=== PATIENT | female | born 1935 | race Caucasian/White ===

== ENCOUNTER 2018-03-16 06:40 | Day surgery (SDC) | payer MEDICARE, BC ==
[2018-03-16] MEDS ORDERED: NEOMYCIN/POLY./DEXAM OPTH OINT OPTH ONE (06:41)
[2018-03-16] MEDS ORDERED: EPINEPHRINE 1 MG/ML AMPUL SQ ONE (06:41)
[2018-03-16] MEDS ORDERED: TETRACAINE HCL 0.5% 15 ML OPTH BTL OPTH ONE (06:41)
[2018-03-16] MEDS ORDERED: LIDOCAINE 2% MDV (20MG/ML) 20ML VIAL IV ONE ×2 (06:41)
[2018-03-16] MEDS ORDERED: PROPOFOL 10 MG/ML VIAL IV ONE (06:41)
[2018-03-16 07:04] LABS: INR 2.3
[2018-03-16] MEDS ORDERED: CIPROFLOXACIN HCL 0.0015 GM, PHENYLEPHRINE HCL 0.05 GM, KETOROLAC TROMETHAMINE 0.000625 GM MC ONE ×5 (11:15)
--- NOTE | 2018-03-18 10:52 | Operative Note ---
DATE OF PROCEDURE: 03/16/18. PREOPERATIVE DIAGNOSIS: Nuclear sclerotic and cortical cataract, left eye. POSTOPERATIVE DIAGNOSIS: Nuclear sclerotic and cortical cataract, left eye. OPERATION: Phacoemulsification of cataractous lens with implantation of intraocular lens. LENS IMPLANT USED: Cazares Model PCB00 + 23.0 diopters. COMPLICATIONS: None. PROCEDURE IN DETAIL: Following a retrobulbar and facial block, the patient was prepped and draped in the usual fashion for eye surgery. A lid speculum was placed in the left eye after which a 2.4 mm tunnel wound was placed at the temporal limbus and dissected into clear cornea. A paracentesis was placed at 2 o'clock hours to the left and right of the initial incision and the chamber deepened with Viscoelastic. The keratome was then used to enter the anterior chamber after which the continuous circular capsulorrhexis was accomplished without difficulty using a bent needle and a Utrata forceps. Hydrodissection and hydrodelineation of the lens was performed after which the nucleus of the lens was removed using the Phaco handpiece in the coqgcr-nsn-nzuhcay technique. The residual cortical material was irrigated and aspirated from the eye after which the bag and chamber were re-examined. The bag was re-inflated with Viscoelastic and the intraocular lens injected into the capsular bag where it centered well. The Viscoelastic was then copiously irrigated and aspirated from the eye after which the temporal tunnel wound and paracentesis were hydrated and the wounds were examined. They were noted to be watertight. The lid speculum was removed from the eye and the eye patched and shielded. The patient was transferred to the recovery room in satisfactory condition and given an appointment to be reexamined in the clinic later today or as directed by Dr. Miramontes. JOB NUMBER: [id number] [facility]
== END 2018-03-16 09:15 | disposition home or self-care (01) ==
LOC: SUR 06:40
PROVIDERS: ATTEND Ophthalmology
DX: H25.12 Age-related nuclear cataract, left eye (principal)
CPT/HCPCS: 85610; J0171

== ENCOUNTER 2018-03-30 08:09 | Day surgery (SDC) | payer MEDICARE, BC ==
[2018-03-30] MEDS ORDERED: NEOMYCIN/POLY./DEXAM OPTH OINT OPTH ONE (08:10)
[2018-03-30] MEDS ORDERED: LIDOCAINE 2% MDV (20MG/ML) 20ML VIAL IV ONE ×2 (08:10)
[2018-03-30] MEDS ORDERED: PROPOFOL 10 MG/ML VIAL IV ONE (08:10)
[2018-03-30] MEDS ORDERED: EPINEPHRINE 1 MG/ML AMPUL SQ ONE (08:10)
[2018-03-30] MEDS ORDERED: TETRACAINE HCL 0.5% 15 ML OPTH BTL OPTH ONE (08:10)
[2018-03-30 09:02] LABS: PROTHROMBIN TIME (PATIENT) 19.6 SECONDS (9.5-12.1)
[2018-03-30] MEDS ORDERED: CIPROFLOXACIN HCL 0.0015 GM, PHENYLEPHRINE HCL 0.05 GM, KETOROLAC TROMETHAMINE 0.000625 GM MC ONE ×5 (16:00)
--- NOTE | 2018-03-31 17:55 | Operative Note ---
DATE OF PROCEDURE: 03/30/18. PREOPERATIVE DIAGNOSIS: Nuclear sclerotic cataract, right eye. POSTOPERATIVE DIAGNOSIS: Nuclear sclerotic cataract, right eye. OPERATION: Phacoemulsification of cataractous lens with implantation of intraocular lens. LENS IMPLANT USED: Cazares Model PCB00 + 23.5 diopters. COMPLICATIONS: None. PROCEDURE IN DETAIL: Following a retrobulbar and facial block, the patient was prepped and draped in the usual fashion for eye surgery. A lid speculum was placed in the right eye after which a 2.4 mm tunnel wound was placed at the temporal limbus and dissected into clear cornea. A paracentesis was placed at 2 o'clock hours to the left and right of the initial incision and the chamber deepened with Viscoelastic. The keratome was then used to enter the anterior chamber after which the continuous circular capsulorrhexis was accomplished without difficulty using a bent needle and a Utrata forceps. Hydrodissection and hydrodelineation of the lens was performed after which the nucleus of the lens was removed using the Phaco handpiece in the [id number]-ebh-[id number] technique. The residual cortical material was irrigated and aspirated from the eye after which the bag and chamber were re-examined. The bag was re-inflated with Viscoelastic and the intraocular lens injected into the capsular bag where it centered well. The Viscoelastic was then copiously irrigated and aspirated from the eye after which the temporal tunnel wound and paracentesis were hydrated and the wounds were examined. They were noted to be watertight. The lid speculum was removed from the eye and the eye patched and shielded. The patient was transferred to the recovery room in satisfactory condition and given an appointment to be reexamined in the clinic later today or as directed by Dr. Miramontes. J[facility]BER: [id number] [facility]
== END 2018-03-30 10:25 | disposition home or self-care (01) ==
LOC: SUR 08:09
PROVIDERS: ATTEND Ophthalmology
DX: H25.11 Age-related nuclear cataract, right eye (principal); I10 Essential (primary) hypertension; E78.00 Pure hypercholesterolemia, unspecified; Z79.01 Long term (current) use of anticoagulants; Z86.711 Personal history of pulmonary embolism; Z86.718 Personal history of other venous thrombosis and embolism; K21.9 Gastro-esophageal reflux disease without esophagitis; G25.0 Essential tremor
CPT/HCPCS: 85610; J0171

== ENCOUNTER → 2018-09-11 | Day surgery (SDC) | payer MEDICARE, BC ==
[~2018-09-11] MED LIST: LIDOCAINE 2% MDV (20MG/ML) 20ML VIAL IV ONE; PROPOFOL 10 MG/ML VIAL IV ONE
[2018-09-11 12:55] LABS: PROTHROMBIN TIME (PATIENT) 10.4 SECONDS (9.5-12.1)
--- NOTE | 2018-09-13 09:00 | Operative Note ---
DATE OF SURGERY: 09/11/2018 OPERATION: COLONOSCOPY to the cecum with electrocautery snare polypectomy x1 and cold snare polypectomy x3, Endoclip placement x1. INDICATION: History of adenomatous polyps. The patient had a colonoscopy last completed by my prior associate Dr. Barrera in 2012 at which time a 10 mm ascending colon polyp was removed. She was asked to return in 3 years' time but could not until today. She denies current complaints. ANESTHESIA: Intravenous sedation was administered by the department of anesthesiology and included Diprivan titrated to effect. PROCEDURE: Following informed consent from this alert individual including a discussion of the risks and benefits of the procedure and an opportunity for the patient to ask questions, the patient was in the left lateral decubitus position. A digital rectal examination was performed. No abnormalities were noted. Following this, the Olympus [id number] video colonoscope was inserted into the rectum without resistance. The rectal mucosa had a normal appearance with normal folds and distensibility. The colonoscope was advanced up through the bowel to the level of the cecum without much difficulty. Throughout the bowel the mucosa appeared normal, the folds were normal, and the bowel was fairly well distensible. The cecum was defined by noting the appendiceal orifice and ileocecal valve. In the ascending colon, there was a 5 mm polyp noted which was removed with cold snare polypectomy. An Endoclip was placed at the polypectomy site for closure and to prevent bleeding. Just distal to this also in the ascending colon was a sessile 1.2 cm polyp which was removed in piecemeal fashion with electrocautery snare polypectomy. No active bleeding was noted following polypectomy. There was a 3rd polyp noted in the sigmoid colon measuring 5 mm in size removed with cold snare and a 4th polyp in the rectum also measuring approximately 5 mm in size removed with cold snare. No other changes were appreciated. Retroflexion in the rectum was endoscopically unremarkable. The endoscope was removed. The patient tolerated the procedure well and was returned to the recovery area in stable condition. IMPRESSION: 1. A 1.2 cm ascending colon polyp removed in piecemeal fashion with electrocautery snare. 2. A 5 mm ascending colon polyp removed with cold snare polypectomy. Endoclip was placed at the site. 3. A 5 mm sigmoid polyp and a 5 mm rectal polyp each removed with cold snare polypectomy. RECOMMENDATIONS: Further recommendations will be forthcoming pending results of pathology obtained today. Followup will also be with Dr. Hampton. Post-polypectomy instructions were given to the patient in oral and written form. As always, thank you for allowing me to participate in the care of your patient. CC: Dr. Gerardo MUNOZ
== END | disposition home or self-care (01) ==
LOC: HOP 11:59
PROVIDERS: ATTEND Internal Medicine Gastroenterology
DX: Z12.11 Encounter for screening for malignant neoplasm of colon (principal); Z86.010 Personal history of colon polyps; D12.2 Benign neoplasm of ascending colon; D12.5 Benign neoplasm of sigmoid colon; K62.1 Rectal polyp; I26.99 Other pulmonary embolism without acute cor pulmonale; I10 Essential (primary) hypertension; E78.00 Pure hypercholesterolemia, unspecified
CPT/HCPCS: 85610